=== PATIENT | female | born 1965 ===

== ENCOUNTER 2025-01-28 14:09 | Emergency (ER) | payer OTHER ==
[~2025-01-28] VITALS: Ht 157.5 cm; Wt 56.7 kg
[2025-01-28 14:15] VITALS: BP 165/98
[2025-01-28] MEDS ORDERED: OXAYDO5 M1 PO ×2 (16:26→16:27)
== END 2025-01-28 16:39 | disposition home or self-care (01) ==
LOC: ER 14:09
DX: S93.402A Sprain of unspecified ligament of left ankle, initial encounter (principal); F17.200 Nicotine dependence, unspecified, uncomplicated; X50.1XXA Overexertion from prolonged static or awkward postures, initial encounter
CPT/HCPCS: 73590; 73610; 99283-25; L1906

== ENCOUNTER 2025-06-18 12:50 | Inpatient (IN) | payer OTHER ==
[~2025-06-18] VITALS: Ht 154.9 cm; Wt 40.4 kg
[~2025-06-18 12:50] MED LIST: OXAYDO5 M1 PO
[2025-06-18] MEDS ORDERED: Ondansetron HCl 2 MG / ML 2ML Vial IV ONE (12:55)
[2025-06-18] MEDS ORDERED: Ketorolac Tromethamine 15mg Vial IV ONE ×2 (13:00→16:55)
[2025-06-18 13:30] LABS: BASOPHILS ABSOLUTE AUTO 0.03 K/mm3 (0.00-0.23); BASOPHILS PERCENT AUTO 0 % (0-2); EOSINOPHILS ABSOLUTE AUTO 0.06 K/mm3 (0.00-0.68); EOSINOPHILS PERCENT AUTO 1 % (0-6); Hematocrit 50.0 % (33.0-51.0); Hemoglobin 16.6 g/dL (11.5-16.0); IMMATURE GRAN ABSOLUTE AUTO 0.03 K/mm3 (0.00-0.10); IMMATURE GRAN PERCENT AUTO 0 % (0-1); LYMPHOCYTES ABSOLUTE AUTO 0.79 K/mm3 (0.84-5.20); LYMPHOCYTES PERCENT AUTO 6 % (21-46); MONOCYTES ABSOLUTE AUTO 0.35 K/mm3 (0.16-1.47); MONOCYTES PERCENT AUTO 3 % (4-13); Mean Corpuscular HGB Conc 33.2 g/dL (31.5-36.5); Mean Corpuscular Volume 93 fL (80-100); NEUTROPHILS ABSOLUTE AUTO 11.48 K/mm3 (1.96-9.15); NEUTROPHILS PERCENT AUTO 90 % (41-73); NRBC ABSOLUTE 0.00 K/mm3 (0.00-0.02); NRBC Auto 0.0 /100 WBC (0.0-0.2); Platelet Count 217 K/mm3 (150-400); RDW Coefficient Variation 12.3 % (11.7-14.2); RDW Standard Deviation 42.1 fL (35.1-46.3)
[2025-06-18 14:19] LABS: Alanine Aminotransfer (ALT/SGP 22.0 U/L (12-78); Albumin, Blood 3.4 g/dL (3.4-5.0); Albumin/Globulin Ratio 0.7 (0.8-1.8); Anion Gap 12.0 mmol/L (3-11); Aspartate Aminotrans (AST/SGOT 18.0 U/L (12-37); Bilirubin, Total 0.5 mg/dL (0.1-1.0); Blood Urea Nitrogen 15.0 mg/dL (8-24); CO2, Blood 24.0 mmol/L (21-32); Calcium, Blood 9.5 mg/dL (8.5-10.1); Chloride, Blood 106.0 mmol/L (98-108); Creatinine, Blood 0.9 mg/dL (0.40-1.00); Globulin, Blood 4.9 g/dL (2.2-4.0); Glucose, Blood 126.0 mg/dL (70-99); Potassium, Blood 3.6 mmol/L (3.5-5.5); Sodium, Blood 138.0 mmol/L (136-145); Total Protein, Blood 8.3 g/dL (6.4-8.2)
[2025-06-18 15:27] LABS: Source, Urine Clean Catch
[2025-06-18 15:32] LABS: Color, Urine Amber (P-Yellow); Glucose Qualitative, Urine 1+ (Neg); Ketones, Urine 1+ (Neg); Leukocyte Esterase, Urine 1+ (Neg); Protein, Urine 3+ (Neg); Specific Gravity, Urine 1.020 (1.003-1.022); Urobilinogen, Urine 3+ (Normal)
[2025-06-18 15:40] LABS: Bilirubin, Urine 1+ (Neg)
[2025-06-18] MEDS ORDERED: DiphenhydrAMINE HCl 50 MG/ML 1ML Vial IV ONE (16:55)
[2025-06-18] MEDS ORDERED: Metoclopramide HCl 5MG / ML 2ML Vial IV PRN (18:35)
[2025-06-18] MEDS ORDERED: NS 1,000 ML IV SCH (18:35)
[2025-06-18] MEDS ORDERED: Ondansetron HCl 2 MG / ML 2ML Vial IV PRN (18:35)
[2025-06-18] MEDS ORDERED: FLU VACC TS2025-26(6MOS UP)/PF 45 MCG/0.5 ML SYRINGE IM SCH (18:35)
[2025-06-18] MEDS ORDERED: FentaNYL Citrate 50 MCG/ML 2 ML Injection IV PRN (18:35)
[2025-06-18] MEDS ORDERED: Piperacillin/Tazobactam Sod 3.375 GM in NS 100 ML IV ONE (18:40)
[2025-06-18] MEDS ORDERED: Albuterol 2.5 MG/3 ML VIAL INH PRN (18:40)
[2025-06-18] MEDS ORDERED: NS 1,000 ML IV ONE ×2 (19:00→20:25)
[2025-06-18 20:54] LABS: U Amphetamine Screen DETECTED; U Barbiturate Screen Not Detected; U Benzodiazapine Screen Not Detected; U Buprenorphine Screen Not Detected; U Cannabinoids Screen DETECTED; U Cocaine Screen Not Detected; U Methadone Screen Not Detected; U Methamphetamine Screen DETECTED; U Opiates Screen Not Detected; U Oxycodone Screen Not Detected; U Phencyclidine Screen Not Detected
[2025-06-18 22:46] VITALS: BP 139/89
[2025-06-19] MEDS ORDERED: Piperacillin/Tazobactam Sod 3.375 GM in NS 100 ML IV SCH
[2025-06-19] MEDS ORDERED: FentaNYL Citrate 50 MCG/ML 2 ML Injection IV PRN (02:00)
[2025-06-19 04:24] VITALS: BP 142/92
--- NOTE | 2025-06-19 04:28 | NUR ---
SHIFT SUMMARY BARBI WAS ALERT AND FULLY ORIENTED ON ASSESSMENT. PAIN WELL MANAGED. PT DENIES NAUSEA, CHEST PAIN, SOB. ADMIT COMPLETED. VSS. PT AMBULATING APPROPRIATELY. LUNG SOUNDS COARSE T/O. NO ACUTE EVENTS AFTER ADMIT OR NOTED CHAGES TO PT CONDITION.
[2025-06-19 05:12] LABS: BASOPHILS ABSOLUTE AUTO 0.01 K/mm3 (0.00-0.23); BASOPHILS PERCENT AUTO 0 % (0-2); EOSINOPHILS ABSOLUTE AUTO 0.00 K/mm3 (0.00-0.68); EOSINOPHILS PERCENT AUTO 0 % (0-6); Hematocrit 35.5 % (33.0-51.0); Hemoglobin 12.0 g/dL (11.5-16.0); IMMATURE GRAN ABSOLUTE AUTO 0.05 K/mm3 (0.00-0.10); IMMATURE GRAN PERCENT AUTO 0 % (0-1); LYMPHOCYTES ABSOLUTE AUTO 0.47 K/mm3 (0.84-5.20); LYMPHOCYTES PERCENT AUTO 4 % (21-46); MONOCYTES ABSOLUTE AUTO 0.23 K/mm3 (0.16-1.47); MONOCYTES PERCENT AUTO 2 % (4-13); Mean Corpuscular HGB Conc 33.8 g/dL (31.5-36.5); Mean Corpuscular Volume 89 fL (80-100); NEUTROPHILS ABSOLUTE AUTO 11.54 K/mm3 (1.96-9.15); NEUTROPHILS PERCENT AUTO 94 % (41-73); NRBC ABSOLUTE 0.00 K/mm3 (0.00-0.02); NRBC Auto 0.0 /100 WBC (0.0-0.2); Platelet Count 203 K/mm3 (150-400); RDW Coefficient Variation 12.0 % (11.7-14.2); RDW Standard Deviation 39.8 fL (35.1-46.3)
[2025-06-19 06:38] LABS: Alanine Aminotransfer (ALT/SGP 17.0 U/L (12-78); Albumin, Blood 2.6 g/dL (3.4-5.0); Albumin/Globulin Ratio 0.6 (0.8-1.8); Anion Gap 10.0 mmol/L (3-11); Aspartate Aminotrans (AST/SGOT 11.0 U/L (12-37); Bilirubin, Total 0.4 mg/dL (0.1-1.0); Blood Urea Nitrogen 15.0 mg/dL (8-24); CO2, Blood 22.0 mmol/L (21-32); Calcium, Blood 8.3 mg/dL (8.5-10.1); Chloride, Blood 109.0 mmol/L (98-108); Creatinine, Blood 0.87 mg/dL (0.40-1.00); Globulin, Blood 4.0 g/dL (2.2-4.0); Glucose, Blood 132.0 mg/dL (70-99); Magnesium, Blood 2.0 mg/dL (1.6-2.4); Potassium, Blood 3.5 mmol/L (3.5-5.5); Sodium, Blood 137.0 mmol/L (136-145); Total Protein, Blood 6.6 g/dL (6.4-8.2)
[2025-06-19 07:22] VITALS: BP 144/95
[2025-06-19 16:11] VITALS: BP 143/95
[2025-06-19] MEDS ORDERED: Ketorolac Tromethamine 15mg Vial IV PRN (16:15)
[2025-06-19 19:52] VITALS: BP 165/98
[2025-06-20 04:31] LABS: Hematocrit 34.7 % (33.0-51.0); Hemoglobin 11.7 g/dL (11.5-16.0); Mean Corpuscular HGB Conc 33.7 g/dL (31.5-36.5); Mean Corpuscular Volume 90 fL (80-100); NRBC ABSOLUTE 0.00 K/mm3 (0.00-0.02); NRBC Auto 0.0 /100 WBC (0.0-0.2); Platelet Count 223 K/mm3 (150-400); RDW Coefficient Variation 12.4 % (11.7-14.2); RDW Standard Deviation 41.0 fL (35.1-46.3)
[2025-06-20 04:32] VITALS: BP 163/91
--- NOTE | 2025-06-20 04:58 | NUR ---
SHIFT SUMMARY BARBI WAS ALERT AND FULLY ORIENTED ON ASSESSMENT. PT IND IN ROOM. PAIN WELL MANAGED. DENIES CHEST PAIN NAUSEA AND SOB. MED MANAGEMENT AT THIS TIME FOR PT. PT SACHI CLEAR LIQ DIET. NO ACUTE EVENT OR NOTED CHANGES TO PT CONDITION TONIGHT.
[2025-06-20 05:04] LABS: Albumin, Blood 2.5 g/dL (3.4-5.0); Anion Gap 7 mmol/L (3-11); Blood Urea Nitrogen 13 mg/dL (8-24); CO2, Blood 23 mmol/L (21-32); Calcium, Blood 8.3 mg/dL (8.5-10.1); Chloride, Blood 110 mmol/L (98-108); Creatinine, Blood 0.88 mg/dL (0.40-1.00); Glucose, Blood 132 mg/dL (70-99); Magnesium, Blood 1.8 mg/dL (1.6-2.4); Phosphorus, Blood 2.0 mg/dL (2.5-4.9); Potassium, Blood 3.1 mmol/L (3.5-5.5); Sodium, Blood 137 mmol/L (136-145)
[2025-06-20 07:58] VITALS: BP 177/96
[2025-06-20] MEDS ORDERED: Potassium Phosphate Dibasic 15 MM in Dextrose 5% 250 ML IV ONE (12:50)
[2025-06-20 15:36] VITALS: BP 164/98
--- NOTE | 2025-06-20 17:21 | NUR ---
SUMMARY- PT A/O X4, INDEPENDANT IN ROOM. TOLERATING CLEAR LIQ DIET. DENIES ABD PAIN. NORMOACTIVE BOWEL TONES. HAS HAD MULT LOOSE STOOLS TODAY. OCC INCONT OF BM RELATED TO URGENCY. HAD A SEVERE HEADACHE THIS AM AND CHRONIC BACK PAIN. MEDICATED WITH FENT WHICH RELIEVED PAIN AND PT WAS ABLE TO SLEEP MOST OF THE SHIFT. 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 PT HAS FREQ MOIST COUGH, EVERY DAY SMOKER. CALLED RT THIS AM FOR NEB TX, HELPFUL TO RELEIVE WHEEZE AND COUGH. PT ENC TO USE FLUTTER AND IS REGULARLLY. REPORTED OFF TO [facility]E [facility] [id number] TO TAKE OVER CARE FOR REMAINDER OF THE SHIFT
[2025-06-20 19:28] VITALS: BP 162/98
[2025-06-21 00:55] VITALS: BP 169/99
[2025-06-21 05:28] VITALS: BP 173/97
[2025-06-21 05:31] LABS: BASOPHILS ABSOLUTE AUTO 0.03 K/mm3 (0.00-0.23); BASOPHILS PERCENT AUTO 1 % (0-2); EOSINOPHILS ABSOLUTE AUTO 0.08 K/mm3 (0.00-0.68); EOSINOPHILS PERCENT AUTO 1 % (0-6); Hematocrit 35.0 % (33.0-51.0); Hemoglobin 11.6 g/dL (11.5-16.0); IMMATURE GRAN ABSOLUTE AUTO 0.02 K/mm3 (0.00-0.10); IMMATURE GRAN PERCENT AUTO 0 % (0-1); LYMPHOCYTES ABSOLUTE AUTO 1.01 K/mm3 (0.84-5.20); LYMPHOCYTES PERCENT AUTO 16 % (21-46); MONOCYTES ABSOLUTE AUTO 0.37 K/mm3 (0.16-1.47); MONOCYTES PERCENT AUTO 6 % (4-13); Mean Corpuscular HGB Conc 33.1 g/dL (31.5-36.5); Mean Corpuscular Volume 91 fL (80-100); NEUTROPHILS ABSOLUTE AUTO 5.01 K/mm3 (1.96-9.15); NEUTROPHILS PERCENT AUTO 77 % (41-73); NRBC ABSOLUTE 0.00 K/mm3 (0.00-0.02); NRBC Auto 0.0 /100 WBC (0.0-0.2); Platelet Count 232 K/mm3 (150-400); RDW Coefficient Variation 12.2 % (11.7-14.2); RDW Standard Deviation 40.6 fL (35.1-46.3)
[2025-06-21 06:15] LABS: Albumin, Blood 2.0 g/dL (3.4-5.0); Anion Gap 9 mmol/L (3-11); Blood Urea Nitrogen 6 mg/dL (8-24); CO2, Blood 26 mmol/L (21-32); Calcium, Blood 8.1 mg/dL (8.5-10.1); Chloride, Blood 109 mmol/L (98-108); Creatinine, Blood 0.82 mg/dL (0.40-1.00); Glucose, Blood 100 mg/dL (70-99); Magnesium, Blood 1.8 mg/dL (1.6-2.4); Phosphorus, Blood 2.9 mg/dL (2.5-4.9); Potassium, Blood 3.5 mmol/L (3.5-5.5); Sodium, Blood 140 mmol/L (136-145)
[2025-06-21 07:46] VITALS: BP 162/97
--- NOTE | 2025-06-21 07:49 | NUR ---
SHIFT SUMMARY NOC. PT ADMIT FOR DIVERTIC WITH PERF. PT RECEIVING ABX PER EMAR, TOLERATING CLD WITHOUT N/V. PT MEDICATED FOR PAIN WITH REPORTED RELIEF OF SX. PT MAKES NEEDS KNOWN, CALL LIGHT IN REACH.
[2025-06-21] MEDS ORDERED: HYDROcodone 5-APAP 325 TAB PO PRN (08:00)
[2025-06-21] MEDS ORDERED: Enoxaparin 30 MG/0.3 ML SYR SC SCH (12:00)
[2025-06-21] MEDS ORDERED: Enoxaparin 40 MG/0.4 ML SYR SC SCH (12:00)
[2025-06-21 14:56] VITALS: BP 139/94
--- NOTE | 2025-06-21 15:51 | NUR ---
SHIFT SUMMARY PATIENT IS AOX4, ADMITTED FOR PERF DIVERTICULITIS. CONTINUING IV ABX, TOLERATING FULL LIQ DIET. PATIENT IS TOLERATING PO PAIN MEDICATIONS. IND IN ROOM AND ABLE TO SHOWER THIS MORNING. PLAN TO ADVANCE DIET AND CONT. ABX UNTIL MEDICAL DISCHARGE. VSS, AND CALL LIGHT IN REACH.
[2025-06-21 20:34] VITALS: BP 178/112
[2025-06-21 21:26] VITALS: BP 164/101
[2025-06-22 05:27] VITALS: BP 174/105
[2025-06-22 05:35] LABS: Hematocrit 35.7 % (33.0-51.0); Hemoglobin 12.0 g/dL (11.5-16.0); Mean Corpuscular HGB Conc 33.6 g/dL (31.5-36.5); Mean Corpuscular Volume 90 fL (80-100); NRBC ABSOLUTE 0.00 K/mm3 (0.00-0.02); NRBC Auto 0.0 /100 WBC (0.0-0.2); Platelet Count 264 K/mm3 (150-400); RDW Coefficient Variation 12.0 % (11.7-14.2); RDW Standard Deviation 39.6 fL (35.1-46.3)
[2025-06-22] MEDS ORDERED: HydrALAZINE HCl 20 MG / ML 1ML Vial IV PRN ×2 (05:55→11:10)
[2025-06-22 06:09] LABS: Albumin, Blood 2.0 g/dL (3.4-5.0); Anion Gap 7 mmol/L (3-11); Blood Urea Nitrogen 4 mg/dL (8-24); CO2, Blood 26 mmol/L (21-32); Calcium, Blood 8.1 mg/dL (8.5-10.1); Chloride, Blood 108 mmol/L (98-108); Creatinine, Blood 0.77 mg/dL (0.40-1.00); Glucose, Blood 95 mg/dL (70-99); Phosphorus, Blood 3.2 mg/dL (2.5-4.9); Potassium, Blood 3.3 mmol/L (3.5-5.5); Sodium, Blood 138 mmol/L (136-145)
--- NOTE | 2025-06-22 06:14 | NUR ---
HOSPITALIST COMMUNICATION THIS RN REACHED OUT TO THE HOSPITALIST D/T THE PATIENT HAVING PERSISTANT HTN T/O THE NIGHT, UNRELIEVED W/ PAIN MEDICAITON. RECIEVED ORDER FOR 10 MG HYDRALAZINE Q6 PRN.
[2025-06-22 06:15] LABS: BAND PERCENT MAN 4 % (0-8); BASOPHILS ABSOLUTE MAN 0.14 K/mm3 (0.00-0.23); BASOPHILS PERCENT MAN 2 % (0-2); EOSINOPHILS ABSOLUTE MAN 0.29 K/mm3 (0.00-0.68); EOSINOPHILS PERCENT MAN 4 % (0-6); LYMPHOCYTES ABSOLUTE MAN 1.39 K/mm3 (0.84-5.20); LYMPHOCYTES PERCENT MAN 19 % (21-46); MONOCYTES ABSOLUTE MAN 0.36 K/mm3 (0.16-1.47); MONOCYTES PERCENT MAN 5 % (4-13); NEUTROPHILS ABSOLUTE MAN 4.99 K/mm3 (1.96-9.15); PLASMA CELL ABSOLUTE MAN 0.14 K/mm3 (0.00-0.00); PLASMA CELLS PERCENT MAN 2 % (0-0); SEG NEUTROPHILS PERCENT MAN 64 % (41-73)
--- NOTE | 2025-06-22 07:24 | NUR ---
SHIFT SUMMARY NOC. ADMIT FOR ACUTE DIVERTIC, PT DENIES ABDOMINAL PAIN THIS SHIFT. PT MEDICATED FOR BACK PAIN WITH REPORTED RELIEF. PT VOIDING URINE AND TOLERATING DIET ORDERED. PT VERBALIZED STRESS AFTER CONVERSATION WITH DAUGHTER THIS SHIFT. PT BLOOD PRESSURE ELEVATED AND NEW ORDERS RECEIVED FOR HYDRALAZINE PRN. PT MAKES NEEDS KNOWN, CALL LIGHT IN REACH.
[2025-06-22 09:20] VITALS: BP 190/120
[2025-06-22 09:43] VITALS: BP 172/112
[2025-06-22 10:58] VITALS: BP 190/120
[2025-06-22] MEDS ORDERED: LORazepam 2 MG/ML 1ML Injection IV ONE (11:10)
[2025-06-22 11:34] VITALS: BP 168/106
[2025-06-22] MEDS ORDERED: Potassium Chloride 10 Meq Tablet SA PO ONE (12:10)
[2025-06-22] MEDS ORDERED: LEVO750 PO (12:32)
[2025-06-22] MEDS ORDERED: ONDA4ODT MM (12:33)
[2025-06-22] MEDS ORDERED: METR500 PO (12:33)
[2025-06-22] MEDS ORDERED: LOSA50 PO (12:34)
[2025-06-22] MEDS ORDERED: VISBIOME 112.51 EACH PO (12:35)
--- NOTE | 2025-06-22 14:51 | NUR ---
SHIFT / DISCHARGE SUMMARY: PATIENT A+O X4 AND ABLE TO MAKE NEEDS KNOWN. PATIENT WAS NOTED AT THE BEGINNING OF THIS SHIFT TO HAVE AN INCREASED BLOOD PREASURE. IV HYDRALAZINE ADMINISTERED AND VITALS RECHECKED [address] MOTA WAS MADE AWARE OF THIS CONCERN. HE GAVE THIS NURSE ANOTHER 1X DOSE OF HYDRALAZINE. SEE CHART FOR DETAILS. PATIENT ASSISTED WITH BELONGINGS OUT TO PARKING LOT. 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
== END 2025-06-22 14:44 | disposition home or self-care (01) | DRG 872 ==
LOC: ER 12:50 → SURS 18:32
PROVIDERS: Family Medicine; Internal Medicine; Nurse Practitioner Acute Care; Physician Assistant; ADMIT Internal Medicine
DX: A41.9 Sepsis, unspecified organism (principal); K57.20 Diverticulitis of large intestine with perforation and abscess without bleeding; E87.6 Hypokalemia; N12 Tubulo-interstitial nephritis, not specified as acute or chronic; N39.0 Urinary tract infection, site not specified; R63.0 Anorexia; M54.9 Dorsalgia, unspecified; F12.90 Cannabis use, unspecified, uncomplicated; F15.90 Other stimulant use, unspecified, uncomplicated; I10 Essential (primary) hypertension; Z91.013 Allergy to seafood; Z98.890 Other specified postprocedural states
CPT/HCPCS: 36415; 74177; 80053; 80069; 81001; 82550; 83605; 83735; 85025; 85027; 87040; 87086; 94640; 94664; 94760; 94762; 96374-59; 96375; 96376; 99285-25; A9270; J0360; J1200; J1650; J1885; J2060; J2405; J2543; J2919; J3010; J3480; J7030; J7050; J7060; Q9967